=== PATIENT | male | born 1950 | race African-American/Black ===

== ENCOUNTER 2019-08-02 02:41 | Emergency (ER) | payer BC ==
[2019-08-02 02:51] VITALS: BP 141/70
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
== END 2019-08-02 06:00 | disposition home or self-care (01) ==
LOC: ER 02:41
DX: M54.2 Cervicalgia (principal); M54.6 Pain in thoracic spine; R51 Headache; V89.2XXA Person injured in unspecified motor-vehicle accident, traffic, initial encounter; I10 Essential (primary) hypertension
CPT/HCPCS: 70450; 72125; 99284